=== PATIENT | female | born 1975 | race Caucasian/White ===

== ENCOUNTER → 2022-04-23 | Outpatient (CLI) | payer BC, OTHER ==
[~2022-04-23] MED LIST: FLEXERIL 10 MG10 MG PO; IBUPROFEN600 MG PO; PREDNISONE 50 M50 MG PO; Voltaren Gel 1 % TOP
== END ==
LOC: EMI 13:00
DX: M54.2 Cervicalgia (principal); M51.34 Other intervertebral disc degeneration, thoracic region; M51.17 Intervertebral disc disorders with radiculopathy, lumbosacral region
CPT/HCPCS: 72141; 72146; 72148